=== PATIENT | female | born 1945 | race Two or more races ===

== ENCOUNTER → 2017-03-16 | Day surgery (SDC) | payer MEDICARE ==
[~2017-03-16] MED LIST: ACETAMINOPHEN ES 500 MG TABLET ONE; ANESTHESIA TRAY IN PYXIS 1 EA TRAY MC ONE; ASPIRIN 600 MG/SUPP.RECT RC ONE; BACITRACIN 50000 UNITS/VIAL ONE; BUPIVACAINE MPF W/EPI 0.25% 30 ML VIAL ONE; CEFAZOLIN SODIUM/DEXTROSE,ISO 50 ML IV ONE; CELECOXIB 100 MG CAPSULE ONE; CELECOXIB 100 MG CAPSULE PO SCH; FENTANYL PF 100MCG/2ML AMPUL ONE; FERROUS SULFATE (325 MG) 325 MG/TAB TABLET PO SCH; HYDROCODONE/APAP 5/325MG 1 EACH TABLET PO PRN; HYDROMORPHONE 2 MG/1 ML SDV ONE; KETOROLAC TROMETHAMINE INJ 30 MG/ML VIAL IV SCH; KETOROLAC TROMETHAMINE INJ 30 MG/ML VIAL ONE; METOCLOPRAMIDE HCL 10 MG/2 ML VIAL ONE; MORPHINE SULFATE INJ 10 MG/ML DISP.SYRIN ONE; ONDANSETRON HCL/PF 4 MG/2 ML VIAL IVP SCH; ROCURONIUM BROMIDE 50 MG/5 ML ONE; oxyCODONE HCL SR 10MG TAB.SR.12H PO ONE; oxyCODONE IR immediate release 5 MG CAPSULE ONE
[2017-03-16 11:59] LABS: BASOPHILS % (AUTO) 0.5 % (0.0-2.0); EOSINOPHILS % (AUTO) 4.4 % (0.0-6.0); HEMATOCRIT 32 % (33-45); HEMOGLOBIN 10.3 g/dL (11.5-14.8); LYMPHOCYTES % (AUTO) 29.7 % (20.0-44.0); MEAN CORPUSCULAR HEMOGLOBIN 28 PG (26.0-33.0); MEAN CORPUSCULAR HGB CONC 32 g/dl (31.0-36.0); MEAN CORPUSCULAR VOLUME 87 fL (82-100); MONOCYTES % (AUTO) 12.2 % (2.0-12.0); NEUTROPHILS % (AUTO) 53.2 % (43.0-81.0); PLATELET COUNT (AUTO) 171 /CMM (150-450); RDW COEFFICIENT OF VARIATION 16.3 (11.5-15.0); RED BLOOD CELL COUNT(AUTO) 3.62 MIL/uL (4.0-5.2); WHITE BLOOD COUNT (AUTO) 6.8 K/uL (4.3-11.0)
[2017-03-16 12:01] LABS: HEMOGLOBIN 9.5 g/dL (11.5-14.8)
[2017-03-16 12:21] LABS: INR 1.01 (0.87-1.13); PROTHROMBIN TIME 10.5 SECS (9.5-12.7)
== END | disposition home or self-care (01) ==
LOC: DS 05:20
PROVIDERS: ATTEND Orthopaedic Surgery
DX: S42.292A Other displaced fracture of upper end of left humerus, initial encounter for closed fracture (principal); X58.XXXA Exposure to other specified factors, initial encounter; Y93.9 Activity, unspecified; Y92.89 Other specified places as the place of occurrence of the external cause; Y99.9 Unspecified external cause status; I10 Essential (primary) hypertension; E11.9 Type 2 diabetes mellitus without complications; Z90.49 Acquired absence of other specified parts of digestive tract
CPT/HCPCS: 23470; 36415; 73030; 82947; 85025; 85027; 85610; 86850; 86921; 88305 ×2; 88311; A4565; A6402; C1776; J0690 ×2; J1170; J1885 ×2; J2270; J2405; J2704; J2710; J2765; J3010 ×3; J3490 ×3; J7030

== ENCOUNTER 2017-10-05 06:40 | Inpatient (IN) | payer MEDICARE ==
[~2017-10-05] VITALS: Ht 172.7 cm; Wt 90.7 kg
[2017-10-05] MEDS ORDERED: oxyCODONE HCL SR 10MG TAB.SR.12H PO ONE ×2 (07:09→11:00)
[2017-10-05] MEDS ORDERED: METOCLOPRAMIDE HCL 10 MG/2 ML VIAL ONE (07:09)
[2017-10-05] MEDS ORDERED: CELECOXIB 100 MG CAPSULE ONE (07:10)
[2017-10-05] MEDS ORDERED: ACETAMINOPHEN ES 500 MG TABLET ONE (07:10)
[2017-10-05] MEDS ORDERED: MIDAZOLAM 50 MG/10 ML VIAL ONE (10:33)
[2017-10-05] MEDS ORDERED: MIDAZOLAM HCL 2 MG/2ML VIAL ONE (10:34)
[2017-10-05] MEDS ORDERED: BUPIVACAINE 0.25% 75 MG/30 ML VIAL ONE ×2 (10:35→10:41)
[2017-10-05] MEDS ORDERED: MORPHINE SULFATE INJ 4 MG/ML DISP.SYRIN ONE (10:41)
[2017-10-05] MEDS ORDERED: KETOROLAC TROMETHAMINE INJ 30 MG/ML VIAL ONE ×2 (10:41→13:46)
[2017-10-05] MEDS ORDERED: BACITRACIN 50000 UNITS/VIAL ONE (10:41)
[2017-10-05] MEDS ORDERED: METOCLOPRAMIDE HCL 10 MG/2 ML VIAL IV ONE (11:00)
[2017-10-05] MEDS ORDERED: ACETAMINOPHEN ES 500 MG TABLET PO ONE (11:00)
[2017-10-05] MEDS ORDERED: CELECOXIB 100 MG CAPSULE PO ONE (11:00)
[2017-10-05] MEDS ORDERED: TRANEXAMIC ACID 1,500 MG in SODIUM CHLORIDE IRRIG SOLUTION 85 ML IR ONE (11:00)
[2017-10-05] MEDS ORDERED: EPHEDRINE SULFATE IV 50MG VIAL ONE (11:54)
[2017-10-05] MEDS ORDERED: oxyCODONE IR immediate release 5 MG ONE (13:09)
[2017-10-05 14:00] VITALS: BP_SYST 106; BP_SYST 122; BP_DIAS 60; BP_DIAS 67
[2017-10-05] MEDS ORDERED: ASPIRIN 600 MG/SUPP.RECT RC ONE (14:00)
[2017-10-05] MEDS ORDERED: ONDANSETRON HCL/PF 4 MG/2 ML VIAL IVP PRN (14:00)
--- NOTE | 2017-10-05 14:00 | NUR ---
RECEIVED PT. FROM RECOVERY ROOM WITH DX. S/P LEFT SHOULDER REVISION FOR HEMIARTHROPLASTY TO REVISE TOTAL SHOULDER ARTHROPLASTY. DRESSING IS INTACT TO LEFT SHOULDER, AND PT. IS WEARING A SLING FOR LEFT ARM SUPPORT. PT. IS ASLEEP, BUT EASILY WAKES UP. PT.'S IS AT BEDSIDE. PT. WAS MADE AWARE OF POSSIBLE DISCHARGE HOME TODAY IF CRITERIA ARE MET. ORIENTED TO ROOM AND SURROUNDINGS. CALL LIGHT WITHIN REACH. VITAL SIGNS TAKEN AND RECORDED. WILL CONTINUE TO ASSESS AND MONITOR.
--- NOTE | 2017-10-05 14:00 | NUR ---
RN NOTES RECEIVED PT. FROM OR IN ROOM 324 BED 1 IN STABLE CONDITION. PT. IS A&OX4. VITALS BP 122/67, PULSE 82, SPO2 90%. NO S/S OF ACUTE DISTRESS. BREATHING ON OXYGEN AT 4L/MIN VIA NASAL CANNULA. NO SOB. WILL CONTINUE TO ASSESS AND MONITOR. PT. CAN BE DISCHARGED WITHIN 4 HOURS IF PT. MEETS CRITERIA POST - OP.
[2017-10-05 14:15] VITALS: BP 107/59
[2017-10-05 14:45] VITALS: BP 106/60
--- NOTE | 2017-10-05 15:00 | NUR ---
RN NOTES CALLED DR. GARZA FOR DIET ORDER AND TO CLARIFY ORDER FOR DISCHARGE HOME TODAY. DISCUSSED WITH MD PT.'S CONDITION, AND PER MD ORDER STATED " SHE CAN GO HOME BY 6 PM, AND THAT PT. CAN GO HOME WITH OXYGEN SATURATION ON ROOM AIR AT 90%."
[2017-10-05 15:15] VITALS: BP 111/60
[2017-10-05] MEDS ORDERED: KETOROLAC TROMETHAMINE INJ 30 MG/ML VIAL IV SCH (16:00)
[2017-10-05] MEDS ORDERED: ONDANSETRON HCL/PF 4 MG/2 ML VIAL IVP SCH (16:00)
[2017-10-05] MEDS ORDERED: HYDROCODONE/APAP 5/325MG 1 EACH TABLET PO SCH (16:00)
--- NOTE | 2017-10-05 16:05 | NUR ---
PT. WAS GIVEN SUPPOSITORY ASPIRIN BY OR NURSE AT 1400.
[2017-10-05] MEDS ORDERED: FERROUS SULFATE (325 MG) 325 MG/TAB TABLET PO SCH (17:00)
[2017-10-05] MEDS ORDERED: CELECOXIB 100 MG CAPSULE PO SCH (17:00)
[2017-10-05 18:30] VITALS: BP 105/59
--- NOTE | 2017-10-05 19:00 | NUR ---
PRIVACY OFFICER PT. WAS DISCHARGE IN MEDICALLY STABLE CONDITION. DISCHARGE INSTRUCTIONS WERE GIVEN WITH EDUCATION, AND PRESCRIPTION. PT. VERBALIZED UNDERSTANDING. PT. LEFT WITH IN A PRIVATE CAR. BEFORE DISCHARGING PT. PT. URINATED IN TOILET AND HAD 100 CC OF CLEAR, AND YELLOW URINE OUTPUT. PT. DENIED NAUSEA AND VOMITING, AND TOLERATED REGULAR FOOD, AND FLUID INTAKE WELL. PT. LEFT WEARING AN ARM SLING TO SUPPORT HER SHOULDER POST-OP, AND WAS GIVEN AN INCENTIVE SPIROMETER TO USE POST-OP. ID BAND, AND IV WAS REMOVED WITHOUT COMPLICATIONS. PT. LEFT WITH ALL OF HER BELONGINGS. ALL QUESTIONS ANSWERED.
== END 2017-10-05 19:00 | disposition home or self-care (01) | DRG 483 ==
LOC: DS 06:40 → MED 14:15
PROVIDERS: ADMIT Orthopaedic Surgery; ATTEND Orthopaedic Surgery
PROC: 0RRK00Z Replacement of Left Shoulder Joint with Reverse Ball and Socket Synthetic Substitute, Open Approach (ICD-10-PCS; principal; 2017-10-05 11:40)
DX: M75.102 Unspecified rotator cuff tear or rupture of left shoulder, not specified as traumatic (principal); Z98.890 Other specified postprocedural states
CPT/HCPCS: 36415; 73030-TC; 82962-TC; 86850-TC; 86921-TC; 87081-TC; 88300-TC; A4217; A4565; A4606; A6402; J0690; J1100; J1885; J2250; J2270; J2405; J2704; J2765; J3490; Z7610

== ENCOUNTER 2018-09-27 09:12 | Inpatient (IN) | payer MEDICARE ==
[~2018-09-27] VITALS: Ht 171.4 cm; Wt 90.7 kg
[2018-09-27 10:00] VITALS: BP 125/77
--- NOTE | 2018-09-27 10:00 | NUR ---
MS ADMISSION NOTES PT WAS BROUGHT TO HER ROOM ACCOMPANIED BY HER WITH HER BELONGINGS.ORIENTED ON THE USE OF CALL LIGHT AND HER ROOM SURROUNDINGS.PT IS ALERT AND ORIENTED X4.VERBALLY RESPONSIVE.AMBULATES AD MAYA WITH STEADY GAIT.RESPIRATIONS NON LABORED IN ROOM AIR.WITH STABLE V/S.DENIES ANY DISTRESS.PT VERBALIZED HAVING A LEFT SHOULDER SX WITH DR GARZA AT 1:30PM AND WAS ON NPO SINCE MIDNIGHT BUT TOOK HER BP MED AT 5:30 AM WITH SMALL SIP OF WATER.PT VERBALIZED THAT THIS WILL BE HER 6TH SHOULDER SX.CALL LIGHT PLACED WITHIN REACH.
--- NOTE | 2018-09-27 10:15 | NUR ---
Zena FREITAS.R CAMRON CAME TO THE UNIT AND JUST TOOK PT AND BROUGHT THE PT TO O.R. WITH THE CHART WITHOUT INFORMING THE NURSES.
--- NOTE | 2018-09-27 10:25 | NUR ---
RECEIVED A CALL FROM O.R. NURSE QUESTIONING WHY THE PT'S CHECKLIST AND CONSENTS HASN'T BEEN SIGNED AND FILLED UP.EXPLAINED THAT THE PT JUST ARRIVED AT 10AM AND THE SX WILL BE DONE AT 1:30 PM. O.R. NURSE STATED THAT SHE WILL JUST LET JANENE MEJIA TO TALK TO ME.
--- NOTE | 2018-09-27 10:30 | NUR ---
JACKEI CALLED AND WAS QUESTIONING WHY THE CHECKLIST AND CONSENTS HASN'T BEEN SIGNED BY THE PT.CALMLY EXPLAINED THAT THE PT JUST ARRIVED AT 10 AM AND THAT THE SX WILL BE DONE AT 1:30 PM.JACKIE EXPLAINED THAT THE SX WAS MOVED TO 10:30AM BY DR MERCADO AND THAT THEY ALREADY TOOK THE PT TO O.R. QUESTIONED JACKIE WHY THE O.R. NURSES HAVEN'T INFORMED US ABOUT THE CHANGES.WENT TO THE WAITING ROOM AND OUTSIDE OF THE O.R. TO INTERVIEW THE PT AND FILL UP THE CHECKLIST BUT DIDN'T SEE ANY PT AROUND-WENT BACK TO MS 2 UNIT.
--- NOTE | 2018-09-27 10:40 | NUR ---
WENT INSIDE O.R. AND INTERVIEWED THE PT TO FILL UP THE CHECKLIST.CHECKED PT'S BLOOD SUGAR:82 AND ONE OF THE O,R, NURSE QUESTIONED WHY I HAVEN'T ADMINISTERED THE PRE-OP MED ORDERS ON THE LIST.EXPLAINED AGAIN THAT THEY TOOK THE PT RIGHT AWAY,JACKIE INTERVENED AND EXPLAINED TO THE O.R. NURSE.
[2018-09-27] MEDS ORDERED: ACETAMINOPHEN ES 500 MG TABLET ONE (10:44)
[2018-09-27] MEDS ORDERED: oxyCODONE HCL SR 10MG TAB.SR.12H PO ONE (10:44)
[2018-09-27] MEDS ORDERED: METOCLOPRAMIDE HCL 10 MG/2 ML VIAL ONE (10:44)
[2018-09-27] MEDS ORDERED: MORPHINE SULFATE INJ 4 MG/ML DISP.SYRIN ONE (10:44)
[2018-09-27] MEDS ORDERED: CELECOXIB 100 MG CAPSULE ONE (10:44)
[2018-09-27] MEDS ORDERED: KETOROLAC TROMETHAMINE INJ 30 MG/ML VIAL ONE (10:44)
[2018-09-27] MEDS ORDERED: BUPIVACAINE MPF W/EPI 0.25% 30 ML VIAL ONE (10:45)
[2018-09-27] MEDS ORDERED: BACITRACIN 50000 UNITS/VIAL ONE (10:45)
[2018-09-27] MEDS ORDERED: ROCURONIUM BROMIDE 50 MG/5 ML ONE (10:48)
[2018-09-27] MEDS ORDERED: HYDROMORPHONE INJ 2 MG/ML DISP.SYRIN ONE (10:48)
[2018-09-27] MEDS ORDERED: TRANEXAMIC ACID 1,500 MG in IV NS 0.9% 50 ML IV ONE (11:00)
[2018-09-27 11:03] LABS: CALCIUM, SERUM 9.1 mg/dL (8.5-10.1); CARBON DIOXIDE 21 mmol/L (21-32); CHLORIDE 112 mmol/L (98-107); CREATININE 1.6 mg/dL (0.6-1.3); GLUCOSE 93 mg/dL (74-106); SODIUM SERUM 143 mmol/L (136-145); UREA NITROGEN, BLOOD 37 mg/dL (7-18)
[2018-09-27 11:05] LABS: POTASSIUM 6.2 mmol/L (3.5-5.1)
--- NOTE | 2018-09-27 12:00 | NUR ---
PT CAME BACK FROM O.R. AND THE LEFT REVERSE TOTAL SHOULDER RE IMPLANTATION SX WAS POSTPONED DUE TO PT'S HIGH POTASSIUM.WITH ONGOING IVF OF NS INFUSING WELL TO RFA TO CONSUME. WILL FOLLOW UP WITH HOSPITALIST.
--- NOTE | 2018-09-27 12:20 | NUR ---
DR ABDI CALLED AND CHECKED ON THE PT AND STATED THAT PT DOESN'T NEED TO BE ADMITTED,JUST ADMINISTER THE KAYEXALATE 60 G PO AND DISCHARGE THE PT. O.R. NURSE,RITCHIE STATED THAT THE PT WILL COME BACK Sunday09/30/18 AT 4 AM FOR THE SURGERY.
[2018-09-27] MEDS ORDERED: SODIUM POLYSTYRENE SULFONATE 15 G/60 ML BOTTLE PO ONE (12:30)
--- NOTE | 2018-09-27 14:36 | NUR ---
DISCHARGED PT HOME WITH STABLE V/S.LT SHOULDER SX PROCEDURE WAS CANCELLED DUE TO HIGH POTASSIUM LEVEL OF 6.2.ADMINISTERED KAYEXALATE 60 GM PO PRIOR TO DISCHARGE.PT DENIED ANY PAIN OR DISTRESS.PT WILL COME BACK IN THE HOSPITAL THIS MON 09/30/18 FOR LT SHOULDER SX WITH DR GARZA.REMOVED IV H/L TO RT WRIST AND PT TOLERATED WITH NO BLEEDING NOTED.
[2018-09-27 15:00] VITALS: BP 125/77
[2018-10-01] MEDS ORDERED: FERR325T28 PO (14:46)
== END 2018-09-27 14:36 | disposition home or self-care (01) | DRG 560 ==
LOC: DS 09:12 → MEDSG2 09:16
PROVIDERS: ADMIT Orthopaedic Surgery; ATTEND Orthopaedic Surgery
DX: T84.59XA Infection and inflammatory reaction due to other internal joint prosthesis, initial encounter (principal); K57.92 Diverticulitis of intestine, part unspecified, without perforation or abscess without bleeding; Z53.09 Procedure and treatment not carried out because of other contraindication; I10 Essential (primary) hypertension; Z86.711 Personal history of pulmonary embolism; Z79.01 Long term (current) use of anticoagulants; E11.9 Type 2 diabetes mellitus without complications; Z87.891 Personal history of nicotine dependence; Y83.9 Surgical procedure, unspecified as the cause of abnormal reaction of the patient, or of later complication, without mention of misadventure at the time of the procedure; Y92.89 Other specified places as the place of occurrence of the external cause
CPT/HCPCS: 36415; 80048-TC; 82962-TC; 85610-TC; 86850-TC; A4216; G0378; J1170; J1885; J2270; J2765; J3490

== ENCOUNTER 2018-09-30 04:22 | Inpatient (IN) | payer MEDICARE ==
[2018-09-30] VITALS (8 sets, daily range): BP systolic 119–160; BP diastolic 61–82
[~2018-09-30] VITALS: Ht 177.8 cm; Wt 94.3 kg
--- NOTE | 2018-09-30 04:30 | NUR ---
MS TRUST ADMINISTRATOR NOTES Received patient ambulatory, A/O x4, direct admit from home for day surgery accompanied by . Assisted patient to bed comfortably. Admission routine done. Belongings inventory done by the assigned TECHNOLOGIST INFECTIOUS DISEASE, to be responsible in keeping the belongings. Initial skin assessment done, with RUE disseminated scabs from scratching. No necessary photos to be taken. Witnessed the patient signed consents the needed consents. Initiated peripheral IV line RFA G#18, SL. With good blood return noted after 1 attempt. BS checked - 111. Patient verbalized she took Metoprolol (dose unrecalled) with sip of water at around 0330. Kept patient on bed comfortably. Kept bed low and locked, siderails x2 up with call light within easy reach. CN spoke with Logan. Will continue to monitor the patient accordingly.
--- NOTE | 2018-09-30 05:48 | NUR ---
MS RN NOTES Patient picked up by OR staff via bed to OR. Informed OR staff patient had a sip of water when she took metoprolol at around 0330.
[2018-09-30] MEDS ORDERED: MORPHINE SULFATE INJ 4 MG/ML DISP.SYRIN ONE (05:59)
[2018-09-30] MEDS ORDERED: KETOROLAC TROMETHAMINE INJ 30 MG/ML VIAL ONE ×2 (05:59→09:38)
[2018-09-30] MEDS ORDERED: BUPIVACAINE MPF W/EPI 0.25% 30 ML VIAL ONE (06:00)
[2018-09-30] MEDS ORDERED: BACITRACIN 50000 UNITS/VIAL ONE (06:13)
[2018-09-30] MEDS ORDERED: MIDAZOLAM HCL 2 MG/2ML VIAL ONE (06:20)
[2018-09-30] MEDS ORDERED: ROCURONIUM BROMIDE 50 MG/5 ML ONE (06:21)
[2018-09-30] MEDS ORDERED: FENTANYL PF 250MCG/5ML AMPUL ONE (06:21)
[2018-09-30] MEDS ORDERED: FAMOTIDINE/PF INJ 20 MG/2 ML VIAL IV ONE (06:21)
[2018-09-30] MEDS ORDERED: BUPIVACAINE 0.25% 75 MG/30 ML VIAL ONE (06:26)
[2018-09-30] MEDS ORDERED: TRANEXAMIC ACID 1,500 MG in SODIUM CHLORIDE IRRIG SOLUTION 85 ML IR ONE (07:30)
[2018-09-30] MEDS ORDERED: oxyCODONE IR immediate release 5 MG ONE (09:19)
[2018-09-30] MEDS ORDERED: ASPIRIN 325 MG TABLET PO ONE (10:00)
[2018-09-30] MEDS ORDERED: LOSA1TAB39 PO (11:26)
[2018-09-30] MEDS ORDERED: RIVA10TA PO (11:26)
[2018-09-30] MEDS ORDERED: METF-442 PO (11:26)
[2018-09-30] MEDS ORDERED: ALEN70TA6 PO (11:26)
[2018-09-30] MEDS ORDERED: PIOG15TA8 PO (11:26)
[2018-09-30] MEDS ORDERED: SIMV40TA5 PO (11:26)
[2018-09-30] MEDS ORDERED: DICL75TA5 PO (11:26)
[2018-09-30] MEDS ORDERED: METO-358 PO (11:26)
[2018-09-30] MEDS ORDERED: ACETAMINOPHEN 325 MG TABLET PO PRN (11:30)
[2018-09-30] MEDS ORDERED: DOCUSATE SODIUM 100 MG CAPSULE PO PRN (11:30)
[2018-09-30] MEDS ORDERED: MAGNESIUM HYDROXIDE 30 ML UDC PO PRN (11:30)
[2018-09-30] MEDS ORDERED: HYDROMORPHONE INJ 2 MG/ML DISP.SYRIN IV PRN (11:30)
--- NOTE | 2018-09-30 11:45 | NUR ---
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 awake, a/ox4. at bedside. sling in place with dressing to left upper arm/shoulder. denies any discomfort. pt has good sensation to left upper arm. oriented to room and surroundings. vss. afebrile. f/c draining to gravity. will continue to monitor. Addendum: 09/30/18 at 1915 by GISELL POSADAS LVN above charting timer error; correct time is at 1045
[2018-09-30] MEDS: BLOOD SUGAR DIAGNOSTIC 1 EACH STRIP IN SCH ×3 (12:00→21:29)
[2018-09-30] MEDS ORDERED: INSULIN REGULAR, HUMAN 100 UNIT/ML 3 ML VIAL SQ PRN (12:00)
[2018-09-30] MEDS ORDERED: ALENDRONATE 70 MG TABLET PO SCH (12:00)
[2018-09-30] MEDS ORDERED: DEXTROSE 50%-WATER 50 ML DISP.SYRIN IV PRN (12:00)
[2018-09-30] MEDS: METOPROLOL SUCCINATE 50 MG TAB.SR.24H PO SCH (12:25)
[2018-09-30] MEDS: LOSARTAN/HCTZ 50-12.5MG/ 1 EA TABLET PO SCH (12:25)
[2018-09-30] MEDS: HYDROCODONE/APAP 5/325MG 1 EACH TABLET PO SCH ×3 (13:00→21:18)
--- NOTE | 2018-09-30 13:15 | NUR ---
m/s pre owned sales manager: notes up with p.t. at this time, tol. well. cantu remains nwb per order. pt verbalized understanding. instructed to call for assistance. will monitor.
[2018-09-30] MEDS: IV 1/2NS 1000 ML 1,000 ML IV PRN (13:41)
--- NOTE | 2018-09-30 15:00 | NUR ---
m/s hotel yardperson: notes resting comfortable in bed. no c/o pain or discomfort. instructed to call for assistance. will continue to monitor.
[2018-09-30] MEDS: ANCEF 1 GM/50 ML D5W IV SCH ×4 (15:08→21:18)
[2018-09-30] MEDS: CELECOXIB 100 MG CAPSULE PO SCH (17:15)
[2018-09-30] MEDS: FERROUS SULFATE (325 MG) 325 MG/TAB TABLET PO SCH (17:15)
--- NOTE | 2018-09-30 17:30 | NUR ---
m/s microelectronics engineer: notes dinner served. hob elevated. at bedside. instructed to call for assistance. will continue to monitor.
[2018-09-30] MEDS: ONDANSETRON HCL/PF 4 MG/2 ML VIAL IVP SCH ×2 (17:55→23:39)
[2018-09-30] MEDS: KETOROLAC TROMETHAMINE INJ 30 MG/ML VIAL IV SCH ×2 (17:55→23:39)
--- NOTE | 2018-09-30 19:00 | NUR ---
m/s electric power line examiner: notes report given to fletcher (rn) for continuity of care.
--- NOTE | 2018-09-30 19:10 | NUR ---
MS RN NOTE RECEIVED PT IN STABLE CONDITION, A&O X4, ABLE TO MAKE NEEDS KNOWN. CURRENTLY AWAKE AND WATCHING TV. NO SIGNS OF SOB OR DISTRESS NO C/O PAIN, N/V. SX. SITE REMAINS INTACT, NO SIGNS OF LEAKAGE OR BLEEDING. F/C IN PLACE. WILL CONT TO MONITOR FOR URINE OUTPUT. ALL CURRENT NEEDS ATTENDED TO. BED LOW, LOCKED, UPPER RAILS UP, AND CALL LIGHT WITHIN REACH. WILL CONT. TO MONITOR.
[2018-09-30] MEDS ORDERED: ZOLPIDEM TARTRATE 5 MG TABLET PO PRN (22:00)
[2018-09-30] MEDS ORDERED: BISACODYL SUPP (10 MG) 10 MG/SUPP.RECT SUPP.RECT RC PRN (22:00)
[2018-10-01] MEDS: HYDROCODONE/APAP 5/325MG 1 EACH TABLET PO SCH ×4 (01:30→13:39)
[2018-10-01] MEDS: IV 1/2NS 1000 ML 1,000 ML IV PRN (03:10)
[2018-10-01] MEDS: KETOROLAC TROMETHAMINE INJ 30 MG/ML VIAL IV SCH ×2 (05:53→12:48)
[2018-10-01] MEDS: ONDANSETRON HCL/PF 4 MG/2 ML VIAL IVP SCH ×2 (05:54→12:50)
--- NOTE | 2018-10-01 06:34 | NUR ---
MS RN NOTE PT IN STABLE CONDITION, A&O X4, ABLE TO MAKE NEEDS KNOWN. NO SIGNS OF SOB OR DISTRESS NO C/O PAIN, N/V. SX. SITE REMAINS INTACT, NO SIGNS OF LEAKAGE OR BLEEDING. F/C IN PLACE. WITH ADEQUATE URINE OUTPUT. ALL CURRENT NEEDS ATTENDED TO. BED LOW, LOCKED, UPPER RAILS UP, AND CALL LIGHT WITHIN REACH. WILL CONT. TO MONITOR AND ENDORSE TO NEXT SHIFT FOR CHATO.
[2018-10-01] MEDS: BLOOD SUGAR DIAGNOSTIC 1 EACH STRIP IN SCH ×2 (06:41→12:07)
[2018-10-01 06:48] LABS: BASOPHILS # (AUTO) 0.1 /CMM (0.0-0.2); BASOPHILS % (AUTO) 0.9 % (0.0-2.0); EOSINOPHILS % (AUTO) 5.5 % (0.0-6.0); HEMATOCRIT 29 % (33-45); HEMOGLOBIN 9.5 g/dL (11.5-14.8); LYMPHOCYTES # (AUTO) 1.5 /CMM (0.8-4.8); LYMPHOCYTES % (AUTO) 25.4 % (20.0-44.0); MEAN CORPUSCULAR HGB CONC 33 g/dl (31.0-36.0); MEAN CORPUSCULAR VOLUME 87 fL (82-100); MONOCYTES # (AUTO) 0.6 /CMM (0.1-1.30); MONOCYTES % (AUTO) 9.9 % (2.0-12.0); NEUTROPHILS # (AUTO) 3.3 /CMM (1.8-8.9); NEUTROPHILS % (AUTO) 58.3 % (43.0-81.0); PLATELET COUNT (AUTO) 118 /CMM (150-450); RED BLOOD CELL COUNT(AUTO) 3.34 MIL/uL (4.0-5.2); WHITE BLOOD COUNT (AUTO) 5.7 K/uL (4.3-11.0)
[2018-10-01 07:07] LABS: CALCIUM, SERUM 8.4 mg/dL (8.5-10.1); CARBON DIOXIDE 22 mmol/L (21-32); CHLORIDE 109 mmol/L (98-107); CREATININE 1.5 mg/dL (0.6-1.3); GLUCOSE 99 mg/dL (74-106); POTASSIUM 5.1 mmol/L (3.5-5.1); SODIUM SERUM 141 mmol/L (136-145); UREA NITROGEN, BLOOD 32 mg/dL (7-18)
--- NOTE | 2018-10-01 07:30 | NUR ---
m/s dish network installer: initial assessment received pt in bed awake, a/ox4. no c/o pain or any discomfort at this time. sling to lue in place with dressing to left shoulder in place. for d'c home today. pt aware and wants to go home today. instructed to call for assistance. will continue to monitor.
[2018-10-01 08:00] VITALS: BP 167/79
[2018-10-01] MEDS: CELECOXIB 100 MG CAPSULE PO SCH (08:47)
[2018-10-01] MEDS: METFORMIN 500 MG TABLET PO SCH ×2 (08:48→08:55)
[2018-10-01] MEDS: LOSARTAN/HCTZ 50-12.5MG/ 1 EA TABLET PO SCH (08:50)
[2018-10-01] MEDS: FERROUS SULFATE (325 MG) 325 MG/TAB TABLET PO SCH ×2 (08:50→13:39)
[2018-10-01] MEDS ORDERED: PIOGLITAZONE HCL 15 MG TABLET PO SCH (09:00)
[2018-10-01] MEDS ORDERED: SIMVASTATIN 40 MG TABLET PO SCH (09:00)
[2018-10-01] MEDS ORDERED: ASPIRIN EC 325 MG TABLET.DR PO SCH (09:00)
--- NOTE | 2018-10-01 09:30 | NUR ---
m/s communication center operator: notes vince (acnp) here and informed her that her creatine was 1.5 and her glucophage was held with no new order at this time.
--- NOTE | 2018-10-01 10:00 | NUR ---
m/s natural gas treating unit operator: md visit seen and examined by vince (acnp) at this time. f/c removed per post day 1 order, gavin. well. instructed to call for assistance. will continue to monitor.
--- NOTE | 2018-10-01 10:11 | NUR ---
m/s sheep herder: notes up with p.t. at this time via hand held.
--- NOTE | 2018-10-01 11:00 | NUR ---
m/s ambulatory services representative: notes visiting at this time and aware that pt is for d'c home this afternoon.
--- NOTE | 2018-10-01 12:00 | NUR ---
m/s technology administrator: notes pt voided and specimen collected and sent to lab.
--- NOTE | 2018-10-01 13:30 | NUR ---
m/s pan helper: notes still awaiting for d'c order from hospitalist, pt aware. to mushroom picker his grandson and come back here after.
[2018-10-01 13:39] VITALS: BP 118/54
[2018-10-01] MEDS: METOPROLOL SUCCINATE 50 MG TAB.SR.24H PO SCH (13:39)
[2018-10-01 13:52] LABS: APPEARANCE,URINE SL CLOUDY (CLEAR); BILIRUBIN,URINE NEGATIVE (NEGATIVE); BLOOD, URINE NEGATIVE Ery/uL (NEGATIVE); COLOR,URINE YELLOW (YELLOW); KETONES,URINE NEGATIVE (NEGATIVE); LEUKOCYTE ESTERASE ,URINE NEGATIVE (NEGATIVE); NITRITE, URINE NEGATIVE (NEGATIVE); PH,URINE 5.5 (5.0-8.0); PROTEIN,URINE NEGATIVE (NEGATIVE); UGLUCOSE NEGATIVE (NEGATIVE); UROBILINOGEN,URINE 0.2 EU/dL (0.2)
[2018-10-01] MEDS ORDERED: FERR325T28 PO (14:46)
--- NOTE | 2018-10-01 15:00 | NUR ---
m/s bonded strand operator: notes order received to d'c pt home. order acknowledged. pt aware. will continue to monitor.
--- NOTE | 2018-10-01 15:30 | NUR ---
m/s blueprint assembler: d'c instructions discharge instructions with prescriptions given to pt and verbalized understanding. pt will f/u with dr. patel and dr. lawrence next week as scheduled by pt. h/l removed with tip intact with no bleeding, no redness, and no swelling noted.
--- NOTE | 2018-10-01 16:00 | NUR ---
m/s correctional program specialist: discharged discharged home in stable condition with all d'c papers and valuables accompanied by and grandson.
[2018-10-01] MEDS ORDERED: RIVAROXABAN 15 MG TABLET PO SCH (17:00)
[2018-10-01] MEDS ORDERED: RIVAROXABAN 10 MG TABLET PO SCH (17:00)
[2018-10-06] MEDS ORDERED: ALENDRONATE 70 MG TABLET PO SCH (07:30)
== END 2018-10-01 15:50 | disposition home or self-care (01) | DRG 483 ==
LOC: DS 04:22 → MED 10:39
PROVIDERS: ATTEND Registered Nurse
PROC: 0RRK00Z Replacement of Left Shoulder Joint with Reverse Ball and Socket Synthetic Substitute, Open Approach (ICD-10-PCS; principal; 2018-09-30)
PROC: 0RPK08Z Removal of Spacer from Left Shoulder Joint, Open Approach (ICD-10-PCS; 2018-09-30)
PROC: 0HBCXZZ Excision of Left Upper Arm Skin, External Approach (ICD-10-PCS; 2018-09-30)
DX: M21.822 Other specified acquired deformities of left upper arm (principal); E11.9 Type 2 diabetes mellitus without complications; E66.9 Obesity, unspecified; E78.5 Hyperlipidemia, unspecified; I48.91 Unspecified atrial fibrillation; M19.90 Unspecified osteoarthritis, unspecified site; Z68.29 Body mass index [BMI] 29.0-29.9, adult; N18.9 Chronic kidney disease, unspecified; I12.9 Hypertensive chronic kidney disease with stage 1 through stage 4 chronic kidney disease, or unspecified chronic kidney disease; Z79.84 Long term (current) use of oral hypoglycemic drugs
CPT/HCPCS: 36415; 73020; 80048-TC; 81000-TC; 82962-TC; 84132-TC; 85025-TC; 87081-TC; 88305-TC; 97110-TC; 97116-TC; 97530-TC; A4217; A4565; A6209; A6402; G0378; J0690; J1815; J1885; J2250; J2270; J2405; J2704; J2710; J2765; J3010; J3490; J7060